=== PATIENT | male | born 2000 | race Two or more races ===

== ENCOUNTER 2019-12-07 01:39 | Emergency (ER) | payer OTHER ==
[~2019-12-07] VITALS: Ht 170.2 cm; Wt 79.8 kg
== END 2019-12-07 09:19 | disposition home or self-care (01) ==
LOC: ER 01:39
DX: R06.02 Shortness of breath (principal); Z20.828 Contact with and (suspected) exposure to other viral communicable diseases

== ENCOUNTER 2020-05-17 20:37 | Emergency (ER) | payer OTHER ==
[~2020-05-17] VITALS: Ht 175.3 cm; Wt 86.2 kg
[2020-05-17] MEDS ORDERED: NABUMETONE500 MG PO (21:27)
[2020-05-17] MEDS ORDERED: DUI500 PO (21:27)
== END 2020-05-17 21:47 | disposition home or self-care (01) ==
LOC: ER 20:37
DX: H66.92 Otitis media, unspecified, left ear (principal)

== ENCOUNTER 2020-08-03 19:31 | Emergency (ER) | payer OTHER ==
[~2020-08-03] VITALS: Ht 167.6 cm; Wt 82.6 kg
[~2020-08-03 19:31] MED LIST: DUI500 PO; NABUMETONE500 MG PO
== END 2020-08-03 21:45 | disposition home or self-care (01) ==
LOC: ER 19:31
DX: B34.9 Viral infection, unspecified (principal); Z11.52 Encounter for screening for COVID-19

== ENCOUNTER 2020-09-18 22:44 | Emergency (ER) | payer OTHER ==
[~2020-09-18] VITALS: Ht 170.2 cm; Wt 81.6 kg
[2020-09-19] MEDS ORDERED: MOXIFLOXACIN H400 MG PO (02:42)
[2020-09-19] MEDS ORDERED: MEDROLPACK PO (02:42)
[2020-09-19] MEDS ORDERED: LEVALBUTER1.25 MG/0. IH (02:42)
[2020-09-19] MEDS ORDERED: ZYRTEC10 MG PO (02:42)
[2020-09-19] MEDS ORDERED: MUCINEX DM ER1 EAC1 PO (02:42)
== END 2020-09-19 03:04 | disposition home or self-care (01) ==
LOC: ER 22:44
DX: J20.9 Acute bronchitis, unspecified (principal); J06.9 Acute upper respiratory infection, unspecified; B34.9 Viral infection, unspecified; Z11.52 Encounter for screening for COVID-19

== ENCOUNTER 2020-10-18 19:31 | Emergency (ER) | payer OTHER ==
[~2020-10-18] VITALS: Ht 175.3 cm; Wt 81.6 kg
[~2020-10-18 19:31] MED LIST changes: +LEVALBUTER1.25 MG/0. IH; +MEDROLPACK PO; +MOXIFLOXACIN H400 MG PO; +MUCINEX DM ER1 EAC1 PO; +ZYRTEC10 MG PO
== END 2020-10-19 00:53 | disposition home or self-care (01) ==
LOC: ER 19:31
DX: J06.9 Acute upper respiratory infection, unspecified (principal)

== ENCOUNTER 2020-10-25 17:49 | Emergency (ER) | payer OTHER ==
[~2020-10-25] VITALS: Ht 167.6 cm; Wt 79.4 kg
[2020-10-25] MEDS ORDERED: DOLOGEN CAPLET1 EACH PO (20:55)
[2020-10-25] MEDS ORDERED: ZITHROMAX500 MG PO (20:55)
[2020-10-25] MEDS ORDERED: TUSNEL LIQUID178 ML PO (20:55)
== END 2020-10-25 21:16 | disposition home or self-care (01) ==
LOC: ER 17:49
DX: B34.9 Viral infection, unspecified (principal); Z20.822 Contact with and (suspected) exposure to COVID-19

== ENCOUNTER → 2020-12-28 | Emergency (ER) | payer OTHER ==
[~2020-12-28] MED LIST changes: +DOLOGEN CAPLET1 EACH PO; +TUSNEL LIQUID178 ML PO; +ZITHROMAX500 MG PO
== END | disposition left against medical advice (07) ==
LOC: ER 19:43
DX: Z53.20 Procedure and treatment not carried out because of patient's decision for unspecified reasons (principal)

== ENCOUNTER 2021-09-12 21:35 | Emergency (ER) | payer OTHER ==
[~2021-09-12] VITALS: Ht 167.6 cm; Wt 87.1 kg
== END 2021-09-12 22:59 | disposition home or self-care (01) ==
LOC: ER 21:35
DX: R53.1 Weakness (principal); Z20.822 Contact with and (suspected) exposure to COVID-19

== ENCOUNTER 2021-11-11 15:48 | Emergency (ER) | payer OTHER ==
[~2021-11-11] VITALS: Ht 167.6 cm; Wt 80.7 kg
[2021-11-11] MEDS ORDERED: CLARITIN5 MG PO (16:54)
[2021-11-11] MEDS ORDERED: KETO10TA2 PO (17:01)
== END 2021-11-11 17:21 | disposition home or self-care (01) ==
LOC: ER 15:48
DX: M94.0 Chondrocostal junction syndrome [Tietze] (principal)

== ENCOUNTER 2022-02-21 16:46 | Emergency (ER) | payer OTHER ==
[~2022-02-21] VITALS: Ht 167.6 cm; Wt 68.0 kg
[~2022-02-21 16:46] MED LIST changes: +CLARITIN5 MG PO; +KETO10TA2 PO
== END 2022-02-21 21:05 | disposition home or self-care (01) ==
LOC: ER 16:46
DX: J06.9 Acute upper respiratory infection, unspecified (principal)

== ENCOUNTER 2022-07-13 23:49 | Emergency (ER) | payer OTHER ==
[~2022-07-13] VITALS: Ht 175.3 cm; Wt 68.0 kg
[2022-07-14] MEDS ORDERED: ZYNCOF 20-400120 ML PO (04:10)
[2022-07-14] MEDS ORDERED: ALBUTEROL2.5 MG/3 M IH (04:10)
[2022-07-14] MEDS ORDERED: KETO10TA2 PO (04:10)
== END 2022-07-14 04:17 ==
LOC: ER 23:49
DX: J40 Bronchitis, not specified as acute or chronic (principal); Z20.822 Contact with and (suspected) exposure to COVID-19

== ENCOUNTER 2023-01-13 17:43 | Emergency (ER) | payer OTHER ==
[~2023-01-13] VITALS: Ht 165.1 cm; Wt 64.4 kg
[~2023-01-13 17:43] MED LIST changes: +ALBUTEROL2.5 MG/3 M IH; +ZYNCOF 20-400120 ML PO
== END 2023-01-13 21:49 | disposition home or self-care (01) ==
LOC: ER 17:43
DX: J32.9 Chronic sinusitis, unspecified (principal)

== ENCOUNTER 2023-10-13 20:49 | Emergency (ER) | payer OTHER ==
[~2023-10-13] VITALS: Ht 167.6 cm; Wt 68.0 kg
[2023-10-13] MEDS ORDERED: KETOROLAC TROMETHAMINE 30 MG VIAL IM STA (23:17)
[2023-10-13] MEDS ORDERED: CEFTRIAXONE SODIUM 2,000 MG VIAL IV STA (23:18)
[2023-10-13] MEDS ORDERED: KETOROLAC TROMETHAMINE 30 MG VIAL ONE (23:22)
[2023-10-13] MEDS ORDERED: CEFTRIAXONE SODIUM 2,000 MG VIAL ONE (23:23)
[2023-10-13] MEDS ORDERED: AMOX-CLAV 875-1 EAC1 PO (23:58)
[2023-10-13] MEDS ORDERED: IBU600 MG PO (23:58)
== END 2023-10-14 00:21 | disposition home or self-care (01) ==
LOC: ER 20:49
DX: K08.89 Other specified disorders of teeth and supporting structures (principal)

== ENCOUNTER 2025-01-07 00:22 | Emergency (ER) | payer OTHER ==
[~2025-01-07] VITALS: Ht 160 cm; Wt 65.8 kg
[~2025-01-07 00:22] MED LIST changes: +AMOX-CLAV 875-1 EAC1 PO; +IBU600 MG PO
[2025-01-07] MEDS ORDERED: KETOROLAC TROMETHAMINE 30 MG VIAL IV ONE (01:15)
[2025-01-07] MEDS ORDERED: CEFTRIAXONE SODIUM 2,000 MG VIAL IV ONE (01:15)
[2025-01-07] MEDS ORDERED: DEXAMETHASONE SODIUM PHOSPHATE 4 MG/ML VIAL IV ONE (01:15)
[2025-01-07] MEDS ORDERED: KETOROLAC TROMETHAMINE 30 MG VIAL ONE (02:09)
[2025-01-07] MEDS ORDERED: DEXAMETHASONE SODIUM PHOSPHATE 4 MG/ML VIAL ONE (02:09)
[2025-01-07] MEDS ORDERED: CEFTRIAXONE SODIUM 2,000 MG VIAL ONE (02:09)
== END 2025-01-07 05:29 | disposition home or self-care (01) ==
LOC: ER 00:22
DX: J06.9 Acute upper respiratory infection, unspecified (principal)